=== PATIENT | female | born 1940 | race Caucasian/White ===

== ENCOUNTER 2018-02-12 19:31 | Inpatient (IN) | payer MEDICARE, BC ==
[~2018-02-12] VITALS: Ht 165.1 cm; Wt 67.2 kg
[2018-02-12] MEDS ORDERED: AMIT100T PO (19:53)
[2018-02-12] MEDS ORDERED: GABA600T2 PO (19:53)
[2018-02-12] MEDS ORDERED: LORA1TAB PO (19:53)
[2018-02-12] MEDS ORDERED: ONDA8TAB16 SL (19:53)
[2018-02-12] MEDS ORDERED: AMLO5TAB2 PO (19:53)
[2018-02-12] MEDS ORDERED: CEFTRIAXONE PMX 1GM/50ML 50 ML ONE (19:56)
[2018-02-12] MEDS ORDERED: methylPREDNISolone SOD SUCC 125 MG/2 ML ONE (19:57)
[2018-02-12] MEDS ORDERED: ACETAMINOPHEN 500 MG TABLET ONE (19:57)
[2018-02-12] MEDS ORDERED: ALBUTEROL SULFATE 2.5 MG/3 ML ONE (19:58)
[2018-02-12] MEDS ORDERED: CEFTRIAXONE PMX 1GM/50ML 50 ML IVPB ONE (20:00)
[2018-02-12] MEDS ORDERED: SODIUM CHLORIDE FLUSH 10ML SYR IVF ONE (20:00)
[2018-02-12] MEDS ORDERED: MORPHINE SULFATE 4 MG/ML, 1ML IVPush PRN (20:00)
[2018-02-12] MEDS ORDERED: SODIUM CHLORIDE 0.9% 1,000ML IVBOLUS ONE (20:00)
[2018-02-12] MEDS ORDERED: PLEASE ENTER ALLERGIES MC SCH (20:00)
[2018-02-12] MEDS ORDERED: methylPREDNISolone SOD SUCC 125 MG/2 ML IVP ONE (20:00)
[2018-02-12] MEDS ORDERED: ACETAMINOPHEN 500 MG TABLET PO ONE (20:00)
[2018-02-12] MEDS ORDERED: AZITHROMYCIN 500 MG in SODIUM CHLORIDE 0.9% 250 ML IVPB ONE (20:00)
[2018-02-12] MEDS ORDERED: METO25TA91 PO (20:03)
[2018-02-12 20:20] LABS: BASOPHILS % (AUTO) 0 % (0-1); EOSINOPHILS % (AUTO) 0 % (1-7); LYMPHOCYTES # (AUTO) 0.74 x10^3/uL (1-3.4); LYMPHOCYTES % (AUTO) 7 % (22-44); MD NO; MEAN CORPUSCULAR HEMOGLOBIN 32.1 pg (27.0-34.8); MEAN CORPUSCULAR HGB CONC 33.7 g/dL (32.4-35.8); MEAN CORPUSCULAR VOLUME 95.2 fL (80-100); MEAN PLATELET VOLUME 9.3 fL (7.4-10.4); MONOCYTES # (AUTO) 0.79 x10^3/uL (0.2-0.8); MONOCYTES % (AUTO) 7 % (2-9); NEUTROPHILS # (AUTO) 9.16 x10^3/uL (1.8-6.8); NEUTROPHILS % (AUTO) 86 % (42-75); PLATELET COUNT 196 x10^3/uL (130-400); RED BLOOD COUNT 3.68 x10^6/uL (3.82-5.3); RED CELL DISTRIBUTION WIDTH 14.6 % (9.6-15.2)
[2018-02-12 20:28] LABS: ALANINE AMINOTRANSFERASE 20 U/L (12-78); ALBUMIN 2.9 g/dL (3.4-5.0); ANION GAP 13 mmol/L (5-15); CHLORIDE 102 mmol/L (98-107); CREATININE 1.85 mg/dL (0.55-1.02)
[2018-02-12 20:33] LABS: ALKALINE PHOSPHATASE 75 U/L (45-117); BILIRUBIN,TOTAL 0.9 mg/dL (0.2-1.0); TOTAL PROTEIN 7.4 g/dL (6.4-8.2); TROPONIN I 0.025 ng/mL (0.000-0.045)
[2018-02-12 22:56] VITALS: BP 113/63
[2018-02-12 23:07] VITALS: BP 113/63
[2018-02-13] MEDS ORDERED: CEFTRIAXONE PMX 1GM/50ML 50 ML IV ONE (00:30)
[2018-02-13] MEDS ORDERED: morphine SULFATE 10 MG/ML, 1ML IVPush PRN (01:00)
[2018-02-13] MEDS ORDERED: LABETALOL 5MG/ML, 20ML IVPush PRN (01:00)
[2018-02-13] MEDS ORDERED: ONDANSETRON ODT 4 MG PO PRN (01:00)
[2018-02-13] MEDS ORDERED: hydrALAzine 20 MG/ML, 1ML IVPush PRN (01:00)
[2018-02-13] MEDS: GABAPENTIN 300 MG CAPSULE PO SCH ×5 (01:00→20:50)
[2018-02-13] MEDS ORDERED: BISACODYL 10 MG SUPP PR PRN (01:00)
[2018-02-13] MEDS ORDERED: PROMETHAZINE 25 MG/ML, 1ML IM PRN (01:00)
[2018-02-13] MEDS ORDERED: GUAIFENESIN ER 600 MG TABLET PO SCH ×2 (01:00→08:30)
[2018-02-13] MEDS ORDERED: ENALAPRILAT 1.25 MG/ML, 2ML IVPush PRN (01:00)
[2018-02-13] MEDS ORDERED: POLYETHYLENE GLYCOL 17 GM PACKET PO PRN (01:00)
[2018-02-13 01:23] LABS: FREE T4 (FREE THYROXINE) 1.44 ng/dL (0.76-1.46); THYROID STIMULATING HORMONE 1.58 mIU/L (0.358-3.740)
[2018-02-13 01:34] LABS: HEMOGLOBIN A1C 6.1 % (4.2-6.3)
[2018-02-13] MEDS: SODIUM CHLORIDE 0.9% 1,000 ML IV SCH ×2 (01:44→09:21)
[2018-02-13 02:00] VITALS: BP 118/60
[2018-02-13] MEDS ORDERED: ALBUTEROL/IPRATROPIUM 2.5MG/0.5MG, 3 ML NPPB PRN (03:30)
[2018-02-13] MEDS: NICOTINE 7 MG/24 HR PATCH.TD24 TD SCH (05:42)
[2018-02-13] MEDS: HEPARIN 5,000 UNITS/ML, 1ML SQ SCH ×3 (05:42→21:29)
[2018-02-13 06:11] LABS: CULTURE INDICATED? YES; MICROSCOPIC INDICATED
[2018-02-13] MEDS: ALBUTEROL/IPRATROPIUM 2.5MG/0.5MG, 3 ML NPPB SCH ×6 (06:45→23:00)
[2018-02-13 07:32] VITALS: BP 105/56
[2018-02-13] MEDS: DOXYCYCLINE 100MG TABLET PO SCH ×2 (08:11→20:51)
[2018-02-13] MEDS: METOPROLOL SUCCINATE 25 MG TAB.ER.24H PO SCH (08:12)
[2018-02-13] MEDS: SENNA/DOCUSATE TABLET PO SCH (08:12)
[2018-02-13] MEDS ORDERED: [UNRECOGNIZED DRUG - REMARK] MC SCH (09:00)
[2018-02-13] MEDS ORDERED: AMLODIPINE 5 MG TABLET PO SCH (09:00)
[2018-02-13] MEDS: FLUTICASONE/VILANTEROL 200-25MCG/INH INH SCH (09:20)
[2018-02-13] MEDS: ACETAMINOPHEN 325 MG TABLET PO PRN (11:57)
[2018-02-13 14:00] VITALS: BP 110/64
[2018-02-13 19:59] VITALS: BP 138/72
[2018-02-13] MEDS: AMITRIPTYLINE 50 MG TABLET PO SCH (20:50)
[2018-02-13] MEDS: GUAIFENESIN ER 600 MG TABLET PO SCH (20:50)
[2018-02-13] MEDS ORDERED: AMITRIPTYLINE 100 MG TABLET PO SCH (21:00)
[2018-02-13] MEDS: CEFTRIAXONE 2 GM in DEXTROSE 5% 50 ML IV SCH (21:29)
[2018-02-13] MEDS ORDERED: CEFTRIAXONE PMX 2GM/50ML 50 ML IV SCH (22:00)
[2018-02-13] MEDS: LORazepam 1MG TABLET PO PRN (22:37)
[2018-02-14 02:00] VITALS: BP 135/79
[2018-02-14] MEDS: ALBUTEROL/IPRATROPIUM 2.5MG/0.5MG, 3 ML NPPB SCH ×5 (03:00→18:42)
[2018-02-14] MEDS: HEPARIN 5,000 UNITS/ML, 1ML SQ SCH ×3 (05:30→21:56)
[2018-02-14] MEDS: NICOTINE 7 MG/24 HR PATCH.TD24 TD SCH (05:30)
[2018-02-14] MEDS: GABAPENTIN 300 MG CAPSULE PO SCH ×4 (05:30→21:55)
[2018-02-14 05:39] LABS: ALANINE AMINOTRANSFERASE 29 U/L (12-78); ALBUMIN 2.3 g/dL (3.4-5.0); ANION GAP 9 mmol/L (5-15); CALCIUM 8.7 mg/dL (8.5-10.1); CHLORIDE 110 mmol/L (98-107); CREATININE 1.26 mg/dL (0.55-1.02)
[2018-02-14 05:43] LABS: ALKALINE PHOSPHATASE 73 U/L (45-117); BILIRUBIN,TOTAL 0.4 mg/dL (0.2-1.0); CHOL/HDL RATIO 2.5; CHOLESTEROL, TOTAL 129 mg/dL (140-239); HDL CHOL % 40 % (28-40); HDL CHOLESTEROL (DIRECT) 51 mg/dL (40-60); LDL CHOLESTEROL,CALCULATED 66 mg/dL (54-169); LDL/HDL RATIO 1.3 (0.5-3.0); TOTAL PROTEIN 6.6 g/dL (6.4-8.2); TRIGLYCERIDES 61 mg/dL (50-200); VLDL CHOLESTEROL 12 mg/dL (0-25)
[2018-02-14 05:48] LABS: MEAN CORPUSCULAR HEMOGLOBIN 31.8 pg (27.0-34.8); MEAN CORPUSCULAR HGB CONC 33.4 g/dL (32.4-35.8); MEAN CORPUSCULAR VOLUME 95.3 fL (80-100); MEAN PLATELET VOLUME 7.9 fL (7.4-10.4); PLATELET COUNT 279 x10^3/uL (130-400); RED BLOOD COUNT 3.75 x10^6/uL (3.82-5.3); RED CELL DISTRIBUTION WIDTH 14.6 % (9.6-15.2)
[2018-02-14 06:24] LABS: BASOPHILS # (AUTO) 0.01 x10^3/uL (0-0.1); BASOPHILS % (AUTO) 0 % (0-1); EOSINOPHILS % (AUTO) 0 % (1-7); LYMPHOCYTES # (AUTO) 0.82 x10^3/uL (1-3.4); LYMPHOCYTES % (AUTO) 6 % (22-44); MD SCAN; MONOCYTES # (AUTO) 0.91 x10^3/uL (0.2-0.8); MONOCYTES % (AUTO) 7 % (2-9); NEUTROPHILS # (AUTO) 12.13 x10^3/uL (1.8-6.8); NEUTROPHILS % (AUTO) 88 % (42-75)
[2018-02-14] MEDS ORDERED: methylPREDNISolone SOD SUCC 125 MG/2 ML ONE (07:13)
[2018-02-14] MEDS ORDERED: methylPREDNISolone SOD SUCC 125 MG/2 ML IVPush ONE (07:30)
[2018-02-14] MEDS ORDERED: POTASSIUM CHLORIDE 20 MEQ TAB.ER.PRT PO ONE (07:30)
[2018-02-14] MEDS ORDERED: FUROSEMIDE 20 MG/2 ML IV ONE (07:30)
[2018-02-14] MEDS ORDERED: MAGNESIUM SULFATE PMX 4GM/100M 100 ML IV ONE (07:30)
[2018-02-14 08:26] VITALS: BP 131/79
[2018-02-14] MEDS: GUAIFENESIN ER 600 MG TABLET PO SCH ×2 (08:35→21:55)
[2018-02-14] MEDS: METOPROLOL SUCCINATE 25 MG TAB.ER.24H PO SCH (08:35)
[2018-02-14] MEDS: ACETAMINOPHEN 325 MG TABLET PO PRN (08:36)
[2018-02-14] MEDS: FLUTICASONE/VILANTEROL 200-25MCG/INH INH SCH (08:36)
[2018-02-14] MEDS: SENNA/DOCUSATE TABLET PO SCH (08:36)
[2018-02-14] MEDS: DOXYCYCLINE 100MG TABLET PO SCH ×2 (08:36→21:55)
[2018-02-14 08:40] LABS: O2 FLOW 40 L/min
[2018-02-14] MEDS ORDERED: AZITHROMYCIN 500 MG in SODIUM CHLORIDE 0.9% 250 ML IV SCH (10:00)
[2018-02-14] MEDS: methylPREDNISolone SOD SUCC 125 MG/2 ML IVPush SCH ×2 (14:13→21:56)
[2018-02-14 15:36] VITALS: BP 137/78
[2018-02-14 19:47] VITALS: BP 128/67
[2018-02-14] MEDS: AMITRIPTYLINE 50 MG TABLET PO SCH (21:55)
[2018-02-14] MEDS: CEFTRIAXONE 2 GM in DEXTROSE 5% 50 ML IV SCH (21:55)
[2018-02-15 00:45] VITALS: BP 168/89
[2018-02-15] MEDS: ALBUTEROL/IPRATROPIUM 2.5MG/0.5MG, 3 ML NPPB SCH ×6 (03:40→22:22)
[2018-02-15] MEDS: methylPREDNISolone SOD SUCC 125 MG/2 ML IVPush SCH ×4 (04:00→20:59)
[2018-02-15 05:48] LABS: BASOPHILS # (AUTO) 0.01 x10^3/uL (0-0.1); BASOPHILS % (AUTO) 0 % (0-1); EOSINOPHILS % (AUTO) 0 % (1-7); LYMPHOCYTES # (AUTO) 0.77 x10^3/uL (1-3.4); LYMPHOCYTES % (AUTO) 7 % (22-44); MD NO; MEAN CORPUSCULAR HEMOGLOBIN 31.6 pg (27.0-34.8); MEAN CORPUSCULAR HGB CONC 32.5 g/dL (32.4-35.8); MEAN CORPUSCULAR VOLUME 97.3 fL (80-100); MEAN PLATELET VOLUME 7.8 fL (7.4-10.4); MONOCYTES # (AUTO) 0.52 x10^3/uL (0.2-0.8); MONOCYTES % (AUTO) 4 % (2-9); NEUTROPHILS # (AUTO) 10.65 x10^3/uL (1.8-6.8); NEUTROPHILS % (AUTO) 89 % (42-75); PLATELET COUNT 288 x10^3/uL (130-400); RED BLOOD COUNT 3.62 x10^6/uL (3.82-5.3); RED CELL DISTRIBUTION WIDTH 14.6 % (9.6-15.2)
[2018-02-15 05:57] LABS: CALCIUM 8.3 mg/dL (8.5-10.1); CHLORIDE 108 mmol/L (98-107)
[2018-02-15] MEDS: GABAPENTIN 300 MG CAPSULE PO SCH ×4 (05:59→21:00)
[2018-02-15] MEDS: NICOTINE 7 MG/24 HR PATCH.TD24 TD SCH (06:00)
[2018-02-15 06:01] LABS: ANION GAP 7 mmol/L (5-15); CREATININE 1.23 mg/dL (0.55-1.02)
[2018-02-15] MEDS: HEPARIN 5,000 UNITS/ML, 1ML SQ SCH ×3 (06:01→22:42)
[2018-02-15 06:44] LABS: FIO2 100 %
[2018-02-15] MEDS ORDERED: methylPREDNISolone SOD SUCC 125 MG/2 ML IVPush ONE (07:00)
[2018-02-15] MEDS ORDERED: POTASSIUM CHLORIDE 20 MEQ TAB.ER.PRT PO ONE (07:30)
[2018-02-15] MEDS: FUROSEMIDE 20 MG/2 ML IV SCH ×2 (07:38→17:08)
[2018-02-15 08:00] VITALS: BP 168/89
[2018-02-15] MEDS: METOPROLOL SUCCINATE 25 MG TAB.ER.24H PO SCH (08:04)
[2018-02-15] MEDS: GUAIFENESIN ER 600 MG TABLET PO SCH ×2 (08:04→21:00)
[2018-02-15] MEDS: SENNA/DOCUSATE TABLET PO SCH (08:04)
[2018-02-15] MEDS: DOXYCYCLINE 100MG TABLET PO SCH ×2 (08:04→21:00)
[2018-02-15] MEDS: FLUTICASONE/VILANTEROL 200-25MCG/INH INH SCH (08:04)
[2018-02-15] MEDS: AMITRIPTYLINE 50 MG TABLET PO SCH (21:00)
[2018-02-15] MEDS: CEFTRIAXONE 2 GM in DEXTROSE 5% 50 ML IV SCH (22:42)
[2018-02-16] MEDS: ALBUTEROL/IPRATROPIUM 2.5MG/0.5MG, 3 ML NPPB SCH ×6 (02:14→22:59)
[2018-02-16] MEDS: methylPREDNISolone SOD SUCC 125 MG/2 ML IVPush SCH ×4 (03:17→20:54)
[2018-02-16 04:00] VITALS: BP 174/91
[2018-02-16 04:35] LABS: ANION GAP 8 mmol/L (5-15); CALCIUM 8.3 mg/dL (8.5-10.1); CHLORIDE 108 mmol/L (98-107); CREATININE 1.26 mg/dL (0.55-1.02)
[2018-02-16 04:41] LABS: BASOPHILS # (AUTO) 0.02 x10^3/uL (0-0.1); BASOPHILS % (AUTO) 0 % (0-1); EOSINOPHILS % (AUTO) 0 % (1-7); LYMPHOCYTES # (AUTO) 0.93 x10^3/uL (1-3.4); LYMPHOCYTES % (AUTO) 8 % (22-44); MD NO; MEAN CORPUSCULAR HEMOGLOBIN 31.2 pg (27.0-34.8); MEAN CORPUSCULAR HGB CONC 32.5 g/dL (32.4-35.8); MEAN CORPUSCULAR VOLUME 96.2 fL (80-100); MONOCYTES # (AUTO) 0.73 x10^3/uL (0.2-0.8); MONOCYTES % (AUTO) 6 % (2-9); NEUTROPHILS # (AUTO) 9.92 x10^3/uL (1.8-6.8); NEUTROPHILS % (AUTO) 86 % (42-75); PLATELET COUNT 283 x10^3/uL (130-400); RED BLOOD COUNT 3.67 x10^6/uL (3.82-5.3); RED CELL DISTRIBUTION WIDTH 14.6 % (9.6-15.2)
[2018-02-16] MEDS: HEPARIN 5,000 UNITS/ML, 1ML SQ SCH ×3 (06:24→22:11)
[2018-02-16] MEDS: GABAPENTIN 300 MG CAPSULE PO SCH ×4 (06:25→20:55)
[2018-02-16] MEDS: NICOTINE 7 MG/24 HR PATCH.TD24 TD SCH (06:25)
[2018-02-16] MEDS: SENNA/DOCUSATE TABLET PO SCH (07:59)
[2018-02-16] MEDS: FUROSEMIDE 20 MG/2 ML IV SCH ×2 (07:59→17:12)
[2018-02-16] MEDS: GUAIFENESIN ER 600 MG TABLET PO SCH ×2 (08:00→20:54)
[2018-02-16] MEDS: DOXYCYCLINE 100MG TABLET PO SCH ×2 (08:00→20:55)
[2018-02-16] MEDS: FLUTICASONE/VILANTEROL 200-25MCG/INH INH SCH (08:02)
[2018-02-16] MEDS: METOPROLOL SUCCINATE 25 MG TAB.ER.24H PO SCH (08:02)
[2018-02-16] MEDS: AMITRIPTYLINE 50 MG TABLET PO SCH (20:55)
[2018-02-16] MEDS: CEFTRIAXONE 2 GM in DEXTROSE 5% 50 ML IV SCH (22:10)
[2018-02-16] MEDS: LORazepam 1MG TABLET PO PRN (22:13)
[2018-02-17] MEDS: ALBUTEROL/IPRATROPIUM 2.5MG/0.5MG, 3 ML NPPB SCH ×6 (02:50→22:10)
[2018-02-17] MEDS: methylPREDNISolone SOD SUCC 125 MG/2 ML IVPush SCH ×4 (02:55→21:32)
[2018-02-17 04:00] VITALS: BP 163/88
[2018-02-17 05:20] LABS: CHLORIDE 107 mmol/L (98-107)
[2018-02-17 05:28] LABS: ANION GAP 9 mmol/L (5-15); CALCIUM 8.9 mg/dL (8.5-10.1); CREATININE 1.28 mg/dL (0.55-1.02)
[2018-02-17] MEDS: GABAPENTIN 300 MG CAPSULE PO SCH ×4 (06:23→21:33)
[2018-02-17] MEDS: HEPARIN 5,000 UNITS/ML, 1ML SQ SCH ×3 (06:24→21:32)
[2018-02-17] MEDS: NICOTINE 7 MG/24 HR PATCH.TD24 TD SCH (06:25)
[2018-02-17] MEDS: FUROSEMIDE 20 MG/2 ML IV SCH (08:10)
[2018-02-17] MEDS: SENNA/DOCUSATE TABLET PO SCH (08:11)
[2018-02-17] MEDS: METOPROLOL SUCCINATE 25 MG TAB.ER.24H PO SCH (08:11)
[2018-02-17] MEDS: DOXYCYCLINE 100MG TABLET PO SCH ×2 (08:11→21:33)
[2018-02-17] MEDS: GUAIFENESIN ER 600 MG TABLET PO SCH ×2 (08:11→21:34)
[2018-02-17] MEDS: FLUTICASONE/VILANTEROL 200-25MCG/INH INH SCH (08:46)
[2018-02-17] MEDS: FUROSEMIDE 40 MG/4 ML IV SCH (17:58)
[2018-02-17] MEDS: LORazepam 1MG TABLET PO PRN (21:34)
[2018-02-17] MEDS: AMITRIPTYLINE 50 MG TABLET PO SCH (21:34)
[2018-02-18] MEDS: ALBUTEROL/IPRATROPIUM 2.5MG/0.5MG, 3 ML NPPB SCH ×6 (02:15→22:22)
[2018-02-18] MEDS: methylPREDNISolone SOD SUCC 125 MG/2 ML IVPush SCH ×2 (02:55→07:26)
[2018-02-18 04:11] LABS: BASOPHILS # (AUTO) 0.08 x10^3/uL (0-0.1); BASOPHILS % (AUTO) 1 % (0-1); EOSINOPHILS % (AUTO) 0 % (1-7); LYMPHOCYTES # (AUTO) 0.88 x10^3/uL (1-3.4); LYMPHOCYTES % (AUTO) 9 % (22-44); MD NO; MEAN CORPUSCULAR HEMOGLOBIN 31.3 pg (27.0-34.8); MEAN CORPUSCULAR HGB CONC 32.9 g/dL (32.4-35.8); MEAN CORPUSCULAR VOLUME 95.4 fL (80-100); MEAN PLATELET VOLUME 7.1 fL (7.4-10.4); MONOCYTES % (AUTO) 6 % (2-9); NEUTROPHILS # (AUTO) 8.51 x10^3/uL (1.8-6.8); NEUTROPHILS % (AUTO) 85 % (42-75); PLATELET COUNT 351 x10^3/uL (130-400); RED CELL DISTRIBUTION WIDTH 14.9 % (9.6-15.2)
[2018-02-18 04:23] LABS: ALBUMIN 2.5 g/dL (3.4-5.0); ANION GAP 7 mmol/L (5-15); CHLORIDE 104 mmol/L (98-107)
[2018-02-18 04:26] LABS: ALANINE AMINOTRANSFERASE 68 U/L (12-78); ALKALINE PHOSPHATASE 67 U/L (45-117); BILIRUBIN,TOTAL 0.4 mg/dL (0.2-1.0); TOTAL PROTEIN 6.6 g/dL (6.4-8.2)
[2018-02-18] MEDS: GABAPENTIN 300 MG CAPSULE PO SCH ×4 (06:03→22:20)
[2018-02-18] MEDS: HEPARIN 5,000 UNITS/ML, 1ML SQ SCH ×3 (06:03→22:19)
[2018-02-18] MEDS: NICOTINE 7 MG/24 HR PATCH.TD24 TD SCH (06:04)
[2018-02-18] MEDS: FUROSEMIDE 40 MG/4 ML IV SCH (07:25)
[2018-02-18] MEDS: METOPROLOL SUCCINATE 25 MG TAB.ER.24H PO SCH (07:26)
[2018-02-18] MEDS: DOXYCYCLINE 100MG TABLET PO SCH ×2 (07:26→22:19)
[2018-02-18] MEDS: SENNA/DOCUSATE TABLET PO SCH (07:26)
[2018-02-18] MEDS: GUAIFENESIN ER 600 MG TABLET PO SCH ×2 (07:26→22:19)
[2018-02-18] MEDS: FLUTICASONE/VILANTEROL 200-25MCG/INH INH SCH (07:27)
[2018-02-18] MEDS: LORazepam 1MG TABLET PO PRN (12:31)
[2018-02-18 12:55] VITALS: BP 109/65
[2018-02-18 13:10] VITALS: BP 116/65
[2018-02-18 19:53] VITALS: BP 121/54
[2018-02-18] MEDS: AMITRIPTYLINE 50 MG TABLET PO SCH (22:20)
[2018-02-19 02:00] VITALS: BP 156/75
[2018-02-19] MEDS: NICOTINE 7 MG/24 HR PATCH.TD24 TD SCH (05:19)
[2018-02-19] MEDS: GABAPENTIN 300 MG CAPSULE PO SCH ×4 (05:19→21:36)
[2018-02-19] MEDS: HEPARIN 5,000 UNITS/ML, 1ML SQ SCH ×3 (05:20→21:36)
[2018-02-19 05:23] LABS: BASOPHILS # (AUTO) 0.03 x10^3/uL (0-0.1); BASOPHILS % (AUTO) 0 % (0-1); EOSINOPHILS # (AUTO) 0.01 x10^3/uL (0-0.4); EOSINOPHILS % (AUTO) 0 % (1-7); LYMPHOCYTES # (AUTO) 1.36 x10^3/uL (1-3.4); LYMPHOCYTES % (AUTO) 11 % (22-44); MD NO; MEAN CORPUSCULAR HEMOGLOBIN 31.6 pg (27.0-34.8); MEAN CORPUSCULAR HGB CONC 32.7 g/dL (32.4-35.8); MEAN CORPUSCULAR VOLUME 96.8 fL (80-100); MEAN PLATELET VOLUME 7.8 fL (7.4-10.4); MONOCYTES # (AUTO) 0.66 x10^3/uL (0.2-0.8); MONOCYTES % (AUTO) 6 % (2-9); NEUTROPHILS # (AUTO) 9.95 x10^3/uL (1.8-6.8); NEUTROPHILS % (AUTO) 83 % (42-75); PLATELET COUNT 379 x10^3/uL (130-400); RED BLOOD COUNT 3.95 x10^6/uL (3.82-5.3); RED CELL DISTRIBUTION WIDTH 14.6 % (9.6-15.2)
[2018-02-19 05:31] LABS: ALANINE AMINOTRANSFERASE 70 U/L (12-78); ALBUMIN 2.4 g/dL (3.4-5.0); ANION GAP 8 mmol/L (5-15); CALCIUM 8.4 mg/dL (8.5-10.1); CHLORIDE 102 mmol/L (98-107); CREATININE 1.49 mg/dL (0.55-1.02)
[2018-02-19 05:33] LABS: ALKALINE PHOSPHATASE 70 U/L (45-117); BILIRUBIN,TOTAL 0.4 mg/dL (0.2-1.0); TOTAL PROTEIN 6.3 g/dL (6.4-8.2)
[2018-02-19] MEDS: ALBUTEROL/IPRATROPIUM 2.5MG/0.5MG, 3 ML NPPB SCH ×5 (07:20→22:57)
[2018-02-19 07:28] VITALS: BP 152/70
[2018-02-19] MEDS: FLUTICASONE/VILANTEROL 200-25MCG/INH INH SCH (08:25)
[2018-02-19] MEDS: GUAIFENESIN ER 600 MG TABLET PO SCH ×2 (08:26→21:36)
[2018-02-19] MEDS: METOPROLOL SUCCINATE 25 MG TAB.ER.24H PO SCH (08:26)
[2018-02-19] MEDS: SENNA/DOCUSATE TABLET PO SCH (08:26)
[2018-02-19] MEDS: DOXYCYCLINE 100MG TABLET PO SCH ×2 (08:27→21:36)
[2018-02-19] MEDS: FUROSEMIDE 20 MG TABLET PO SCH (09:55)
[2018-02-19 14:20] VITALS: BP 97/54
[2018-02-19 19:48] VITALS: BP 136/71
[2018-02-19 20:00] VITALS: BP 136/69
[2018-02-19] MEDS: AMITRIPTYLINE 50 MG TABLET PO SCH (21:36)
[2018-02-20 04:43] VITALS: BP 151/81
[2018-02-20 05:18] LABS: ANION GAP 6 mmol/L (5-15); CALCIUM 8.7 mg/dL (8.5-10.1); CHLORIDE 102 mmol/L (98-107); CREATININE 1.31 mg/dL (0.55-1.02)
[2018-02-20 05:19] LABS: BASOPHILS % (AUTO) 0 % (0-1); EOSINOPHILS # (AUTO) 0.03 x10^3/uL (0-0.4); EOSINOPHILS % (AUTO) 0 % (1-7); LYMPHOCYTES % (AUTO) 14 % (22-44); MD NO; MEAN CORPUSCULAR HEMOGLOBIN 31.1 pg (27.0-34.8); MEAN CORPUSCULAR HGB CONC 32.4 g/dL (32.4-35.8); MEAN CORPUSCULAR VOLUME 96.1 fL (80-100); MEAN PLATELET VOLUME 7.5 fL (7.4-10.4); MONOCYTES # (AUTO) 0.69 x10^3/uL (0.2-0.8); MONOCYTES % (AUTO) 8 % (2-9); NEUTROPHILS # (AUTO) 6.76 x10^3/uL (1.8-6.8); NEUTROPHILS % (AUTO) 78 % (42-75); PLATELET COUNT 325 x10^3/uL (130-400); RED BLOOD COUNT 3.71 x10^6/uL (3.82-5.3); RED CELL DISTRIBUTION WIDTH 14.2 % (9.6-15.2)
[2018-02-20] MEDS: NICOTINE 7 MG/24 HR PATCH.TD24 TD SCH (05:56)
[2018-02-20] MEDS: HEPARIN 5,000 UNITS/ML, 1ML SQ SCH ×2 (05:56→14:00)
[2018-02-20] MEDS: GABAPENTIN 300 MG CAPSULE PO SCH ×3 (05:56→16:00)
[2018-02-20] MEDS: ALBUTEROL/IPRATROPIUM 2.5MG/0.5MG, 3 ML NPPB SCH ×3 (06:00→13:55)
[2018-02-20 07:21] VITALS: BP 133/69
[2018-02-20] MEDS: FLUTICASONE/VILANTEROL 200-25MCG/INH INH SCH (09:54)
[2018-02-20] MEDS: FUROSEMIDE 20 MG TABLET PO SCH (09:54)
[2018-02-20] MEDS: GUAIFENESIN ER 600 MG TABLET PO SCH (09:54)
[2018-02-20] MEDS: SENNA/DOCUSATE TABLET PO SCH (09:55)
[2018-02-20] MEDS: METOPROLOL SUCCINATE 25 MG TAB.ER.24H PO SCH (09:55)
[2018-02-20] MEDS: DOXYCYCLINE 100MG TABLET PO SCH (09:55)
[2018-02-20] MEDS ORDERED: FURO20TA3 PO (13:27)
[2018-02-20] MEDS ORDERED: PRED5TAB PO (13:27)
[2018-02-20] MEDS ORDERED: DOXY100T PO (13:27)
[2018-02-20] MEDS ORDERED: FLUT1BLS INH (13:27)
[2018-02-20] MEDS ORDERED: IPRA3AMP NPPB (13:27)
== END 2018-02-20 18:42 | disposition home or self-care (01) | DRG 871 ==
LOC: ED 20:41 → EDIP 21:21 → 4WST 22:55 → CCU 02-15 11:27 → 4WST 02-18 13:18
PROVIDERS: ADMIT Internal Medicine; ATTEND Internal Medicine
DX: A41.9 Sepsis, unspecified organism (principal); E43 Unspecified severe protein-calorie malnutrition; J96.21 Acute and chronic respiratory failure with hypoxia; I50.33 Acute on chronic diastolic (congestive) heart failure; J18.9 Pneumonia, unspecified organism; E87.2 Acidosis; N17.9 Acute kidney failure, unspecified; G62.9 Polyneuropathy, unspecified; I11.0 Hypertensive heart disease with heart failure; N39.0 Urinary tract infection, site not specified; E87.1 Hypo-osmolality and hyponatremia; J44.0 Chronic obstructive pulmonary disease with (acute) lower respiratory infection; J44.1 Chronic obstructive pulmonary disease with (acute) exacerbation; F17.200 Nicotine dependence, unspecified, uncomplicated; E78.5 Hyperlipidemia, unspecified; F17.210 Nicotine dependence, cigarettes, uncomplicated; I27.20 Pulmonary hypertension, unspecified; Z85.3 Personal history of malignant neoplasm of breast; Z92.21 Personal history of antineoplastic chemotherapy; Z71.6 Tobacco abuse counseling; G89.29 Other chronic pain; Z68.24 Body mass index [BMI] 24.0-24.9, adult
CPT/HCPCS: 36415; 36600; 71045; 71250; 74230; 78582; 80048; 80053; 80061; 81001; 82803; 83036; 83605; 83735; 84100; 84439; 84443; 84484; 85025; 87040; 87070; 87081; 87086; 87205; 93005; 93306; 94640; 96365; 96366; 96375; J0456; J0696; J1644; J1940; J7620; A9540; A9558; C9898; J2930; J3475; J7030; J7050; J7512

== ENCOUNTER → 2019-09-10 | Outpatient (CLI) | payer MEDICARE, BC ==
[~2019-09-10] MED LIST: AMIT100T PO; AMLO-150 PO; DOXY100T PO; FLUT1BLS INH; FURO20TA3 PO; GABA600T7 PO; IPRA3AMP30 NPPB; LORA1TAB PO; METO25TA91 PO; ONDA8TAB16 SL; PRED5TAB PO; REGADENOSON 0.4 MG/5 ML SYRINGE ONE
== END | disposition home or self-care (01) ==
LOC: CFH 08:05
PROVIDERS: ATTEND Internal Medicine Cardiovascular Disease
DX: I08.3 Combined rheumatic disorders of mitral, aortic and tricuspid valves (principal); R06.02 Shortness of breath; I10 Essential (primary) hypertension; F17.200 Nicotine dependence, unspecified, uncomplicated; J44.9 Chronic obstructive pulmonary disease, unspecified; Z85.3 Personal history of malignant neoplasm of breast
CPT/HCPCS: 78452; 93017; 93306; A9502; J2785